=== PATIENT | female | born 1975 | race African-American/Black ===

== ENCOUNTER → 2020-09-05 | Outpatient (CLI) | payer OTHER ==
--- NOTE | 2020-09-06 06:50 | CT ---
EXAMINATION TYPE: CT urogram wo/w con DATE OF EXAM: 09/05/2020 HISTORY: Hematuria CT DLP: 3036.7mGycm Automated Exposure Control for Dose Reduction was Utilized. CONTRAST: CT scan of the abdomen and pelvis is performed without oral and without and with IV Contrast, patient injected with 100 mL of Isovue 300. Urogram protocol. Three-D reconstructed images created on a [employer] workstation and reviewed. COMPARISON: None. FINDINGS: KUB: No renal stones are evident bilaterally on noncontrast images. There is symmetric cortical medul tessie uptake and excretion without concerning renal mass or hydronephrosis seen bilaterally. Left grea ter than right extra renal pelvises noted. Visualized portion of both ureters show no suspicious fill ing defect or obstructing lesion. Urinary bladder shows no intraluminal calculus. There is satisfacto ry filling without intraluminal mass or wall thickening. LUNG BASES: No significant abnormality is appreciated. LIVER/GB: No significant abnormality is appreciated. PANCREAS: No significant abnormality is seen. SPLEEN: No significant abnormality is seen. ADRENALS: Slight nodular thickening left adrenal gland favors benign lipid rich hyperplasia. KIDNEYS: No significant abnormality is seen. BOWEL: Normal-appearing appendix incidentally noted. PROSTATE: No significant abnormality is seen. LYMPH NODES: No greater than 1cm abdominal or pelvic lymph nodes are appreciated. OSSEOUS STRUCTURES: Mild facet arthropathy lower lumbar levels. [id number]-br-[id number] axial joint space lo ss both hips. OTHER: No significant additional abnormality is seen. IMPRESSION: No significant finding is seen to account for patient's clinical symptoms of hematuria.
== END ==
LOC: RADCTMAIN 16:16
PROVIDERS: ATTEND Nurse Practitioner Family
DX: R31.29 Other microscopic hematuria (principal); N20.1 Calculus of ureter
CPT/HCPCS: 74178; 74400; Q9967